=== PATIENT | male | born 1995 | race Caucasian/White ===

== ENCOUNTER 2019-05-11 16:41 | Emergency (ER) | payer MEDICAID ==
[~2019-05-11] VITALS: Ht 175.3 cm; Wt 66.7 kg
[2019-05-11 17:10] VITALS: BP 122/67; Ht 175.3 cm; Wt 66.7 kg
== END 2019-05-11 18:06 | disposition home or self-care (01) ==
LOC: ED 16:41
DX: S93.402A Sprain of unspecified ligament of left ankle, initial encounter (principal); X50.1XXA Overexertion from prolonged static or awkward postures, initial encounter; Y93.89 Activity, other specified; Y92.89 Other specified places as the place of occurrence of the external cause; Y99.8 Other external cause status